=== PATIENT | female | born 1970 | race Two or more races ===

== ENCOUNTER 2017-06-01 05:22 | Emergency (ER) | payer OTHER ==
[~2017-06-01] VITALS: Ht 157.5 cm; Wt 58.1 kg
== END 2017-06-01 14:49 | disposition home or self-care (01) ==
LOC: ER 05:22
DX: M54.5 Low back pain (principal)

== ENCOUNTER 2019-11-02 05:40 | Day surgery (SDC) | payer OTHER ==
[~2019-11-02 05:40] MED LIST: FIORICET; PREVACID30 MG PO
== END 2019-11-02 12:00 | disposition home or self-care (01) ==
LOC: CIR.AMB 05:40 → ADM 10:45 → CIR.AMB 12:00
PROVIDERS: ATTEND Otolaryngology Otology & Neurotology
DX: H72.02 Central perforation of tympanic membrane, left ear (principal)

== ENCOUNTER 2020-02-22 05:55 | Day surgery (SDC) | payer OTHER | END 2020-02-22 10:45 | disposition home or self-care (01) | LOC: CIR.AMB 05:55 | PROVIDERS: ATTEND Otolaryngology Otology & Neurotology | DX: H90.12 Conductive hearing loss, unilateral, left ear, with unrestricted hearing on the contralateral side (principal); H65.492 Other chronic nonsuppurative otitis media, left ear; Z20.828 Contact with and (suspected) exposure to other viral communicable diseases ==

== ENCOUNTER 2023-04-29 05:30 | Day surgery (SDC) | payer OTHER ==
[2023-04-23 10:21] LABS: URINE APPEARANCE Clear; URINE BILIRRUBIN Negative (NEGATIVE); URINE BLOOD Small; URINE COLOR Yellow; URINE GLUCOSE Negative (NEGATIVE); URINE LEUKOCYTE Negative; URINE NITRATE Negative; URINE PROTEIN Negative (NEGATIVE); URINE UROBILINOGEN 0.2 E.U./dl
[2023-04-23 10:21] LABS: HEMATOCRIT 39.4 % (36.0-45.00); HEMOGLOBIN 13.5 g/dL (12.0-15.00); MEAN CELL VOLUME 91.2 fL (80.00-100.00); MEAN CORPUSCULAR HEMOGLOBIN 31.3 pg (27.00-32.0); MEAN CORPUSCULAR HGB CONC 34.3 g/dl (32.0-36.0); PLATELET COUNT 273 K/uL (150-450); RED BLOOD COUNT 4.32 M/uL (4.00-6.00); RED CELL DISTRIBUTION WIDTH 12.8 % (11.5-14.5)
[2023-04-23 10:28] LABS: URINE BACTERIA 506.3 uL (0.0-1933); URINE EPITHELIAL CELLS 33.3 uL (0.0-38.8); URINE RBC 33.4 uL (0.0-20.8); URINE WBC 6.4 uL (0.0-23.2)
[2023-04-23 10:51] LABS: INR 0.97; PARTIAL THROMBOPLASTIN TIME 27.6 SECONDS (22.0-34.0); PROTHROMBIN TIME 10.2 SECONDS (9.0-11.5)
[2023-04-23 11:11] LABS: ALBUMIN 3.9 gm/dL (3.4-5.0); BILIRUBIN TOTAL 0.39 mg/dL (0.3-1.2); CALCIUM 8.8 mg/dL (8.5-10.1); CREATININE SERUM 0.63 mg/dL (0.55-1.02); GFR 100.02; GLOBULINA 2.7 G/DL (2.4-3.5); POTASSIUM 3.91 mEq/L (3.5-5.1); TOTAL PROTEIN 6.6 gm/dL (6.4-8.2)
== END 2023-04-29 13:00 | disposition home or self-care (01) ==
LOC: CIR.AMB 05:30
PROVIDERS: ATTEND Otolaryngology Otology & Neurotology
DX: H66.91 Otitis media, unspecified, right ear (principal); H72.01 Central perforation of tympanic membrane, right ear; H72.91 Unspecified perforation of tympanic membrane, right ear; Z88.8 Allergy status to other drugs, medicaments and biological substances